=== PATIENT | female | born 1945 | race Caucasian/White ===

== ENCOUNTER 2021-02-06 10:19 | Inpatient (IN) ==
[2021-02-06] MEDS ORDERED: Sucralfate 1 GM TABLET PO PRN (14:27)
[2021-02-06] MEDS: *HR* LORazepam 1 MG TABLET PO PRN (20:34)
[2021-02-06] MEDS: amLODIPine 5 MG TABLET PO SCH (20:35)
[2021-02-06] MEDS: Cyclosporine [Restasis Multidose] 5.5 ML Drops OP SCH (20:37)
[2021-02-07] MEDS: *HR* Enoxaparin 40 MG/0.4 ML SYRINGE SQ SCH (05:43)
[2021-02-07] MEDS: amLODIPine 5 MG TABLET PO SCH ×2 (08:18→21:08)
[2021-02-07] MEDS: Aspirin Enteric Coated 81 MG Tablet PO SCH (08:18)
[2021-02-07] MEDS: *HR* LORazepam 1 MG TABLET PO PRN ×2 (08:19→21:09)
[2021-02-07] MEDS: Cyclosporine [Restasis Multidose] 5.5 ML Drops OP SCH ×2 (08:32→21:11)
[2021-02-08] MEDS: *HR* Enoxaparin 40 MG/0.4 ML SYRINGE SQ SCH (05:41)
[2021-02-08 05:56] LABS: Hematocrit 32.6 % (35.3-44.9); Hemoglobin 10.8 g/dL (11.5-15.4); Mean Corpuscular HGB Conc 33.1 g/dL (31.6-35.5); Mean Corpuscular Hemoglobin 28.6 pg (28.0-33.3); Mean Corpuscular Volume 86.5 fL (83.0-100.0); Mean Platelet Volume 9.3 fL (9.4-12.4); Platelet Count 222 K/mcL (140-400); Red Blood Count 3.77 M/mcL (3.82-4.97); Red Cell Distribution Width 12.7 % (11.5-14.5); White Blood Count 6.7 K/mcL (4.3-11.1)
[2021-02-08 06:19] LABS: BUN/Creatinine Ratio 18 (6-26); Blood Urea Nitrogen 10 mg/dL (8-23); Calcium 8.4 mg/dL (8.6-10.3); Carbon Dioxide 28 mEq/L (23-29); Chloride 98 mEq/L (98-107); Glucose 97 mg/dL (70-105); Osmolality,Calculated 273 (280-300); Sodium 132 mEq/L (136-145); eGFR For African Americans > 60 (> 60); eGFR For Non-African Americans > 60 (> 60)
[2021-02-08] MEDS: Aspirin Enteric Coated 81 MG Tablet PO SCH (10:38)
[2021-02-08] MEDS: amLODIPine 5 MG TABLET PO SCH ×2 (10:39→20:42)
[2021-02-08] MEDS: *HR* LORazepam 1 MG TABLET PO PRN ×2 (10:41→20:43)
[2021-02-08] MEDS: Cyclosporine [Restasis Multidose] 5.5 ML Drops OP SCH ×2 (10:41→20:24)
[2021-02-09] MEDS: *HR* Enoxaparin 40 MG/0.4 ML SYRINGE SQ SCH (05:19)
[2021-02-09] MEDS: Aspirin Enteric Coated 81 MG Tablet PO SCH (08:31)
[2021-02-09] MEDS: Cyclosporine [Restasis Multidose] 5.5 ML Drops OP SCH ×2 (08:32→21:00)
[2021-02-09] MEDS: amLODIPine 5 MG TABLET PO SCH ×2 (08:32→21:00)
[2021-02-09] MEDS: *HR* LORazepam 1 MG TABLET PO PRN ×2 (08:32→20:59)
[2021-02-10] MEDS: *HR* Enoxaparin 40 MG/0.4 ML SYRINGE SQ SCH (06:08)
[2021-02-10] MEDS: amLODIPine 5 MG TABLET PO SCH ×2 (07:50→20:26)
[2021-02-10] MEDS: Aspirin Enteric Coated 81 MG Tablet PO SCH (07:51)
[2021-02-10] MEDS: Cyclosporine [Restasis Multidose] 5.5 ML Drops OP SCH ×2 (07:51→19:14)
[2021-02-10] MEDS: *HR* LORazepam 1 MG TABLET PO PRN (18:20)
[2021-02-11] MEDS: *HR* Enoxaparin 40 MG/0.4 ML SYRINGE SQ SCH (05:10)
[2021-02-11 06:20] LABS: Basophils # 0.1 K/mcL (0.0-0.2); Basophils % 1.1 %; Eosinophils # 0.4 K/mcL (0.0-0.6); Eosinophils % 5.5 %; Hematocrit 36.6 % (35.3-44.9); Hemoglobin 12.2 g/dL (11.5-15.4); Immature Granulocytes % 0.3 % (0-4); Lymphocytes # 1.3 K/mcL (0.6-4.6); Lymphocytes % 19.9 %; Mean Corpuscular HGB Conc 33.3 g/dL (31.6-35.5); Mean Corpuscular Hemoglobin 28.9 pg (28.0-33.3); Mean Corpuscular Volume 86.7 fL (83.0-100.0); Mean Platelet Volume 9.3 fL (9.4-12.4); Monocytes # 0.7 K/mcL (0.0-1.3); Monocytes % 10.9 %; Neutrophils # 4.1 K/mcL (1.6-8.9); Platelet Count 225 K/mcL (140-400); Red Blood Count 4.22 M/mcL (3.82-4.97); Red Cell Distribution Width 12.8 % (11.5-14.5); Segmented Neutrophils % 62.3 %; White Blood Count 6.5 K/mcL (4.3-11.1)
[2021-02-11 06:43] LABS: BUN/Creatinine Ratio 17 (6-26); Blood Urea Nitrogen 9 mg/dL (8-23); Calcium 8.8 mg/dL (8.6-10.3); Carbon Dioxide 29 mEq/L (23-29); Chloride 96 mEq/L (98-107); Glucose 99 mg/dL (70-105); Osmolality,Calculated 271 (280-300); Potassium 3.7 mEq/L (3.5-5.1); Sodium 131 mEq/L (136-145); eGFR For African Americans > 60 (> 60); eGFR For Non-African Americans > 60 (> 60)
[2021-02-11] MEDS: Aspirin Enteric Coated 81 MG Tablet PO SCH (07:57)
[2021-02-11] MEDS: amLODIPine 5 MG TABLET PO SCH ×2 (07:57→19:33)
[2021-02-11] MEDS: Cyclosporine [Restasis Multidose] 5.5 ML Drops OP SCH (07:57)
[2021-02-11] MEDS: *HR* LORazepam 1 MG TABLET PO PRN ×2 (07:57→19:35)
[2021-02-12] MEDS: *HR* Enoxaparin 40 MG/0.4 ML SYRINGE SQ SCH (05:07)
[2021-02-12] MEDS: *HR* LORazepam 1 MG TABLET PO PRN ×2 (08:19→20:36)
[2021-02-12] MEDS: Aspirin Enteric Coated 81 MG Tablet PO SCH (08:19)
[2021-02-12] MEDS: amLODIPine 5 MG TABLET PO SCH ×2 (08:19→20:38)
[2021-02-13] MEDS: *HR* Enoxaparin 40 MG/0.4 ML SYRINGE SQ SCH (08:05)
[2021-02-13] MEDS: amLODIPine 5 MG TABLET PO SCH ×2 (08:05→20:32)
[2021-02-13] MEDS: Aspirin Enteric Coated 81 MG Tablet PO SCH (08:08)
[2021-02-13] MEDS ORDERED: MOM Conc 10 ML UD.LIQ PO PRN (15:41)
[2021-02-13] MEDS ORDERED: Bisacodyl 10 MG RECTAL SUPPOSITORY RC PRN (15:41)
[2021-02-13] MEDS: polyethylene glycoL 3350 17 GM POWD.PACK PO SCH (15:46)
[2021-02-13] MEDS: *HR* LORazepam 1 MG TABLET PO PRN (20:31)
[2021-02-13] MEDS: Sennosides 8.6 MG TABLET PO SCH (20:31)
[2021-02-14] MEDS: *HR* Enoxaparin 40 MG/0.4 ML SYRINGE SQ SCH (05:03)
[2021-02-14 07:18] VITALS: BP 152/74; PULSE 95; RESP 16; TEMP 97.9; O2SAT 96
[2021-02-14] MEDS ORDERED: Sucralfate 1 GM TABLET PO SCH (07:30)
[2021-02-14] MEDS: polyethylene glycoL 3350 17 GM POWD.PACK PO SCH (09:08)
[2021-02-14] MEDS: Aspirin Enteric Coated 81 MG Tablet PO SCH (09:08)
[2021-02-14] MEDS: amLODIPine 5 MG TABLET PO SCH (09:08)
[2021-02-14] MEDS: Sennosides 8.6 MG TABLET PO SCH (09:08)
[2021-02-14] MEDS: *HR* LORazepam 1 MG TABLET PO PRN (09:53)
== END 2021-02-14 10:55 | disposition home health service (06) | DRG 948 ==
LOC: INPGRE 14:02
PROVIDERS: ADMIT Family Medicine; ATTEND Family Medicine

== ENCOUNTER 2021-04-17 16:29 | Inpatient (IN) ==
[2021-04-17] MEDS: amLODIPine 5 MG TABLET PO SCH (21:11)
[2021-04-17] MEDS: *HR* LORazepam 1 MG TABLET PO PRN (21:14)
[2021-04-17] MEDS: Cyclosporine [Restasis Multidose] 5.5 ML Drops OP SCH (21:19)
[2021-04-18 06:04] LABS: Basophils # 0.1 K/mcL (0.0-0.2); Basophils % 0.9 %; Eosinophils # 0.3 K/mcL (0.0-0.6); Eosinophils % 4.9 %; Hematocrit 31.5 % (35.3-44.9); Hemoglobin 10.4 g/dL (11.5-15.4); Immature Granulocytes % 0.4 % (0-4); Lymphocytes # 1.3 K/mcL (0.6-4.6); Lymphocytes % 18.8 %; Mean Corpuscular Hemoglobin 28.7 pg (28.0-33.3); Mean Platelet Volume 9.6 fL (9.4-12.4); Monocytes # 1.1 K/mcL (0.0-1.3); Monocytes % 15.8 %; Neutrophils # 4.1 K/mcL (1.6-8.9); Platelet Count 227 K/mcL (140-400); Red Blood Count 3.62 M/mcL (3.82-4.97); Red Cell Distribution Width 14.2 % (11.5-14.5); Segmented Neutrophils % 59.2 %
[2021-04-18 06:25] LABS: BUN/Creatinine Ratio 24 (6-26); Blood Urea Nitrogen 13 mg/dL (8-23); Calcium 8.7 mg/dL (8.6-10.3); Carbon Dioxide 31 mEq/L (23-29); Chloride 95 mEq/L (98-107); Glucose 103 mg/dL (70-105); Osmolality,Calculated 264 (280-300); Potassium 3.9 mEq/L (3.5-5.1); Sodium 127 mEq/L (136-145); eGFR For African Americans > 60 (> 60); eGFR For Non-African Americans > 60 (> 60)
[2021-04-18] MEDS: Aspirin Enteric Coated 81 MG Tablet PO SCH (10:04)
[2021-04-18] MEDS: Loratadine 10 MG TABLET PO SCH (10:04)
[2021-04-18] MEDS: Sucralfate 1 GM TABLET PO PRN (10:04)
[2021-04-18] MEDS: *HR* Enoxaparin 40 MG/0.4 ML SYRINGE SQ SCH ×2 (10:04→10:21)
[2021-04-18] MEDS: amLODIPine 5 MG TABLET PO SCH ×2 (10:04→20:44)
[2021-04-18] MEDS: Cyanocobalamin (B-12) 1,000 MCG TABLET PO SCH (10:04)
[2021-04-18] MEDS: Cyclosporine [Restasis Multidose] 5.5 ML Drops OP SCH ×2 (10:05→21:00)
[2021-04-18] MEDS: valACYclovir 500 MG TABLET PO SCH ×2 (10:05→10:14)
[2021-04-18] MEDS: *HR* LORazepam 1 MG TABLET PO PRN ×2 (11:00→20:48)
[2021-04-19] MEDS: *HR* LORazepam 1 MG TABLET PO PRN ×2 (07:27→17:02)
[2021-04-19] MEDS: Aspirin Enteric Coated 81 MG Tablet PO SCH (07:28)
[2021-04-19] MEDS: Cyanocobalamin (B-12) 1,000 MCG TABLET PO SCH (07:28)
[2021-04-19] MEDS: valACYclovir 500 MG TABLET PO SCH (07:29)
[2021-04-19] MEDS: amLODIPine 5 MG TABLET PO SCH ×2 (07:29→19:50)
[2021-04-19] MEDS: Loratadine 10 MG TABLET PO SCH (07:29)
[2021-04-19] MEDS: Cyclosporine [Restasis Multidose] 5.5 ML Drops OP SCH ×2 (07:30→20:15)
[2021-04-19] MEDS: *HR* Enoxaparin 40 MG/0.4 ML SYRINGE SQ SCH ×2 (07:30→08:46)
[2021-04-19] MEDS: polyethylene glycoL 3350 17 GM POWD.PACK PO SCH ×2 (07:31→08:47)
[2021-04-20] MEDS: Cyanocobalamin (B-12) 1,000 MCG TABLET PO SCH (07:41)
[2021-04-20] MEDS: *HR* LORazepam 1 MG TABLET PO PRN (07:41)
[2021-04-20] MEDS: amLODIPine 5 MG TABLET PO SCH ×2 (07:41→21:07)
[2021-04-20] MEDS: Aspirin Enteric Coated 81 MG Tablet PO SCH (07:41)
[2021-04-20] MEDS: Loratadine 10 MG TABLET PO SCH (07:42)
[2021-04-20] MEDS: valACYclovir 500 MG TABLET PO SCH (07:42)
[2021-04-20] MEDS: Cyclosporine [Restasis Multidose] 5.5 ML Drops OP SCH ×2 (07:44→20:58)
[2021-04-20] MEDS: *HR* Enoxaparin 40 MG/0.4 ML SYRINGE SQ SCH (07:44)
[2021-04-20] MEDS: polyethylene glycoL 3350 17 GM POWD.PACK PO SCH (07:44)
[2021-04-20] MEDS: *HR* LORazepam 0.5 MG TABLET PO SCH ×2 (15:01→21:07)
[2021-04-20] MEDS ORDERED: Simethicone 80 MG TAB.CHEW PO PRN ×2 (20:24→20:28)
[2021-04-20] MEDS: Sucralfate 1 GM TABLET PO PRN (21:11)
[2021-04-21 04:32] LABS: Basophils # 0.1 K/mcL (0.0-0.2); Eosinophils # 0.5 K/mcL (0.0-0.6); Eosinophils % 6.9 %; Hematocrit 31.1 % (35.3-44.9); Hemoglobin 10.5 g/dL (11.5-15.4); Immature Granulocytes % 0.6 % (0-4); Lymphocytes # 1.4 K/mcL (0.6-4.6); Lymphocytes % 19.9 %; Mean Corpuscular HGB Conc 33.8 g/dL (31.6-35.5); Mean Corpuscular Hemoglobin 29.4 pg (28.0-33.3); Mean Corpuscular Volume 87.1 fL (83.0-100.0); Mean Platelet Volume 8.8 fL (9.4-12.4); Monocytes # 0.9 K/mcL (0.0-1.3); Monocytes % 13.1 %; Neutrophils # 4.1 K/mcL (1.6-8.9); Platelet Count 217 K/mcL (140-400); Red Blood Count 3.57 M/mcL (3.82-4.97); Red Cell Distribution Width 14.1 % (11.5-14.5); Segmented Neutrophils % 58.5 %
[2021-04-21 04:48] LABS: BUN/Creatinine Ratio 24 (6-26); Blood Urea Nitrogen 16 mg/dL (8-23); Calcium 8.4 mg/dL (8.6-10.3); Carbon Dioxide 29 mEq/L (23-29); Chloride 95 mEq/L (98-107); Glucose 128 mg/dL (70-105); Osmolality,Calculated 267 (280-300); Potassium 4.2 mEq/L (3.5-5.1); Sodium 127 mEq/L (136-145); eGFR For African Americans > 60 (> 60); eGFR For Non-African Americans > 60 (> 60)
[2021-04-21] MEDS: *HR* Enoxaparin 40 MG/0.4 ML SYRINGE SQ SCH (08:22)
[2021-04-21] MEDS: Aspirin Enteric Coated 81 MG Tablet PO SCH (08:24)
[2021-04-21] MEDS: valACYclovir 500 MG TABLET PO SCH (08:25)
[2021-04-21] MEDS: Cyanocobalamin (B-12) 1,000 MCG TABLET PO SCH (08:25)
[2021-04-21] MEDS: Loratadine 10 MG TABLET PO SCH (08:25)
[2021-04-21] MEDS: *HR* LORazepam 0.5 MG TABLET PO SCH ×3 (08:25→21:58)
[2021-04-21] MEDS: amLODIPine 5 MG TABLET PO SCH ×2 (08:25→21:58)
[2021-04-21] MEDS: Cyclosporine [Restasis Multidose] 5.5 ML Drops OP SCH ×2 (08:26→22:00)
[2021-04-21] MEDS: polyethylene glycoL 3350 17 GM POWD.PACK PO SCH (08:26)
[2021-04-21] MEDS: Sucralfate 1 GM TABLET PO PRN (13:48)
[2021-04-22 05:59] LABS: Chol/HDL Ratio 2.5 (0-4.9)
[2021-04-22] MEDS: amLODIPine 5 MG TABLET PO SCH ×2 (08:57→20:09)
[2021-04-22] MEDS: Aspirin Enteric Coated 81 MG Tablet PO SCH (08:57)
[2021-04-22] MEDS: valACYclovir 500 MG TABLET PO SCH (08:57)
[2021-04-22] MEDS: *HR* Enoxaparin 40 MG/0.4 ML SYRINGE SQ SCH (08:58)
[2021-04-22] MEDS: polyethylene glycoL 3350 17 GM POWD.PACK PO SCH (08:58)
[2021-04-22] MEDS: Cyclosporine [Restasis Multidose] 5.5 ML Drops OP SCH (08:58)
[2021-04-22] MEDS: *HR* LORazepam 0.5 MG TABLET PO SCH ×3 (08:58→20:08)
[2021-04-22] MEDS: Loratadine 10 MG TABLET PO SCH (08:58)
[2021-04-22] MEDS: Cyanocobalamin (B-12) 1,000 MCG TABLET PO SCH (08:58)
[2021-04-22] MEDS ORDERED: Bisacodyl 10 MG RECTAL SUPPOSITORY RC PRN (18:33)
[2021-04-22 18:43] LABS: Bilirubin,Urine Negative (Negative); Blood,Urine Large (Negative); Clarity,Urine Slightly Cloudy (Clear); Glucose,Urine (UA) Normal (Normal); Ketones,Urine Negative (Negative); Leukocyte Esterase,Urine Small (Negative); Nitrite,Urine Negative (Negative); Protein,Urine Negative (Neg-Trace); Specific Gravity,Urine 1.015 (1.010-1.025); Urobilinogen,Urine Normal (Normal)
[2021-04-22 18:49] LABS: Color,Urine LIGHT YELLOW (Yellow)
[2021-04-22] MEDS: Artificial Tears SOLN 15 ML BOTTLE OP SCH (20:07)
[2021-04-22] MEDS: Sucralfate 1 GM TABLET PO PRN (20:10)
[2021-04-22 20:40] LABS: Amorphous Sediment,Urine Few per hpf (None-Few); Bacteria,Urine Few per hpf (None-Few); Hyaline Casts,Urine Few per lpf (None Seen); Squamous Epithelial Cell,Urine Few per hpf (None-Few)
[2021-04-23] MEDS: Sucralfate 1 GM TABLET PO PRN (06:35)
[2021-04-23] MEDS: Artificial Tears SOLN 15 ML BOTTLE OP SCH ×2 (09:01→22:35)
[2021-04-23] MEDS: *HR* LORazepam 0.5 MG TABLET PO SCH ×3 (09:03→22:31)
[2021-04-23] MEDS: amLODIPine 5 MG TABLET PO SCH ×2 (09:03→22:31)
[2021-04-23] MEDS: Aspirin Enteric Coated 81 MG Tablet PO SCH (09:03)
[2021-04-23] MEDS: valACYclovir 500 MG TABLET PO SCH (09:03)
[2021-04-23] MEDS: Cyanocobalamin (B-12) 1,000 MCG TABLET PO SCH (09:03)
[2021-04-23] MEDS: Loratadine 10 MG TABLET PO SCH (09:03)
[2021-04-23] MEDS: *HR* Enoxaparin 40 MG/0.4 ML SYRINGE SQ SCH (09:04)
[2021-04-23] MEDS: polyethylene glycoL 3350 17 GM POWD.PACK PO SCH (09:18)
[2021-04-23 10:43] LABS: Hematocrit 36.2 % (35.3-44.9); Hemoglobin 12.4 g/dL (11.5-15.4); Mean Corpuscular HGB Conc 34.3 g/dL (31.6-35.5); Mean Corpuscular Hemoglobin 29.7 pg (28.0-33.3); Mean Corpuscular Volume 86.6 fL (83.0-100.0); Mean Platelet Volume 8.6 fL (9.4-12.4); Platelet Count 246 K/mcL (140-400); Red Blood Count 4.18 M/mcL (3.82-4.97); Red Cell Distribution Width 14.2 % (11.5-14.5); White Blood Count 9.2 K/mcL (4.3-11.1)
[2021-04-23 11:33] LABS: BUN/Creatinine Ratio 24 (6-26); Blood Urea Nitrogen 13 mg/dL (8-23); Calcium 8.9 mg/dL (8.6-10.3); Carbon Dioxide 30 mEq/L (23-29); Chloride 90 mEq/L (98-107); Glucose 105 mg/dL (70-105); Magnesium 1.9 mg/dL (1.6-2.6); Osmolality,Calculated 260 (280-300); Potassium 4.1 mEq/L (3.5-5.1); Sodium 125 mEq/L (136-145); eGFR For African Americans > 60 (> 60); eGFR For Non-African Americans > 60 (> 60)
[2021-04-24 06:22] LABS: Hematocrit 30.6 % (35.3-44.9); Hemoglobin 10.6 g/dL (11.5-15.4); Mean Corpuscular HGB Conc 34.6 g/dL (31.6-35.5); Mean Corpuscular Hemoglobin 29.9 pg (28.0-33.3); Mean Corpuscular Volume 86.2 fL (83.0-100.0); Mean Platelet Volume 9.3 fL (9.4-12.4); Platelet Count 224 K/mcL (140-400); Red Blood Count 3.55 M/mcL (3.82-4.97); Red Cell Distribution Width 14.2 % (11.5-14.5); White Blood Count 6.9 K/mcL (4.3-11.1)
[2021-04-24 06:42] LABS: BUN/Creatinine Ratio 24 (6-26); Blood Urea Nitrogen 12 mg/dL (8-23); Calcium 8.6 mg/dL (8.6-10.3); Carbon Dioxide 30 mEq/L (23-29); Chloride 94 mEq/L (98-107); Glucose 98 mg/dL (70-105); Magnesium 2.2 mg/dL (1.6-2.6); Osmolality,Calculated 266 (280-300); Potassium 3.9 mEq/L (3.5-5.1); Sodium 128 mEq/L (136-145); eGFR For African Americans > 60 (> 60); eGFR For Non-African Americans > 60 (> 60)
[2021-04-24] MEDS: Aspirin Enteric Coated 81 MG Tablet PO SCH (08:57)
[2021-04-24] MEDS: *HR* LORazepam 0.5 MG TABLET PO SCH ×3 (08:58→20:16)
[2021-04-24] MEDS: valACYclovir 500 MG TABLET PO SCH (08:58)
[2021-04-24] MEDS: amLODIPine 5 MG TABLET PO SCH ×2 (08:58→20:08)
[2021-04-24] MEDS: Loratadine 10 MG TABLET PO SCH (08:58)
[2021-04-24] MEDS: Cyanocobalamin (B-12) 1,000 MCG TABLET PO SCH (08:58)
[2021-04-24] MEDS: polyethylene glycoL 3350 17 GM POWD.PACK PO SCH (09:08)
[2021-04-24] MEDS: Artificial Tears SOLN 15 ML BOTTLE OP SCH ×2 (09:09→20:01)
[2021-04-24] MEDS: *HR* Enoxaparin 40 MG/0.4 ML SYRINGE SQ SCH (09:09)
[2021-04-24] MEDS: Sucralfate 1 GM TABLET PO PRN (18:19)
[2021-04-25] MEDS: Aspirin Enteric Coated 81 MG Tablet PO SCH (08:52)
[2021-04-25] MEDS: Cyanocobalamin (B-12) 1,000 MCG TABLET PO SCH (08:53)
[2021-04-25] MEDS: Loratadine 10 MG TABLET PO SCH (08:53)
[2021-04-25] MEDS: *HR* LORazepam 0.5 MG TABLET PO SCH ×3 (08:53→20:06)
[2021-04-25] MEDS: amLODIPine 5 MG TABLET PO SCH ×2 (08:53→20:04)
[2021-04-25] MEDS: valACYclovir 500 MG TABLET PO SCH (08:55)
[2021-04-25] MEDS: *HR* Enoxaparin 40 MG/0.4 ML SYRINGE SQ SCH (08:59)
[2021-04-25] MEDS: polyethylene glycoL 3350 17 GM POWD.PACK PO SCH (09:01)
[2021-04-25] MEDS: Artificial Tears SOLN 15 ML BOTTLE OP SCH ×2 (09:02→20:06)
[2021-04-26] MEDS: Sucralfate 1 GM TABLET PO PRN (06:24)
[2021-04-26 06:50] VITALS: BP 138/75; PULSE 94; RESP 17; TEMP 97.6; O2SAT 98
[2021-04-26] MEDS: Aspirin Enteric Coated 81 MG Tablet PO SCH (09:04)
[2021-04-26] MEDS: amLODIPine 5 MG TABLET PO SCH (09:04)
[2021-04-26] MEDS: valACYclovir 500 MG TABLET PO SCH (09:04)
[2021-04-26] MEDS: Loratadine 10 MG TABLET PO SCH (09:04)
[2021-04-26] MEDS: Cyanocobalamin (B-12) 1,000 MCG TABLET PO SCH (09:04)
[2021-04-26] MEDS: Artificial Tears SOLN 15 ML BOTTLE OP SCH (09:05)
[2021-04-26] MEDS: *HR* LORazepam 0.5 MG TABLET PO SCH (09:05)
[2021-04-26] MEDS: *HR* Enoxaparin 40 MG/0.4 ML SYRINGE SQ SCH (09:06)
[2021-04-26] MEDS: polyethylene glycoL 3350 17 GM POWD.PACK PO SCH (09:06)
== END 2021-04-26 11:05 | disposition home health service (06) | DRG 948 ==
LOC: INPGRE 18:28
PROVIDERS: ADMIT Family Medicine; ATTEND Family Medicine

== ENCOUNTER 2021-09-30 10:44 | Inpatient (IN) ==
[2021-09-30] MEDS ORDERED: valACYclovir 500 MG TABLET PO PRN (14:50)
[2021-09-30] MEDS ORDERED: Nystatin Ointment 15 GM TUBE TP PRN (14:50)
[2021-09-30] MEDS ORDERED: Budesonide Neb 0.5 MG/2 ML IH ONE (20:01)
[2021-09-30] MEDS: Budesonide Neb 0.5 MG/2 ML IH SCH (20:05)
[2021-09-30] MEDS: *HR* LORazepam 1 MG TABLET PO PRN (21:17)
[2021-09-30] MEDS: Cyclosporine [Restasis Multidose] 5.5 ML Drops OP SCH (21:18)
[2021-10-01] MEDS: *HR* Enoxaparin 40 MG/0.4 ML SYRINGE SQ SCH (06:48)
[2021-10-01 07:49] LABS: Hematocrit 34.5 % (35.3-44.9); Hemoglobin 11.5 g/dL (11.5-15.4); Mean Corpuscular HGB Conc 33.3 g/dL (31.6-35.5); Mean Corpuscular Volume 87.1 fL (83.0-100.0); Mean Platelet Volume 8.7 fL (9.4-12.4); Platelet Count 222 K/mcL (140-400); Red Blood Count 3.96 M/mcL (3.82-4.97); Red Cell Distribution Width 13.6 % (11.5-14.5); White Blood Count 4.9 K/mcL (4.3-11.1)
[2021-10-01 08:07] LABS: Alanine Aminotransferase 9 Units/L (7-52); Albumin 3.6 g/dL (3.5-5.7); Albumin/Globulin Ratio 2.1 (1.1-2.2); Alkaline Phosphatase 43 Units/L (34-104); Aspartate Amino Transferase 10 Units/L (13-39); BUN/Creatinine Ratio 24 (6-26); Bilirubin,Total 0.5 mg/dL (0.3-1.0); Blood Urea Nitrogen 13 mg/dL (8-23); Calcium 8.9 mg/dL (8.6-10.3); Carbon Dioxide 28 mEq/L (23-29); Chloride 97 mEq/L (98-107); Globulin 1.7 g/dL (2.4-3.5); Glucose 98 mg/dL (70-105); Magnesium 2.2 mg/dL (1.6-2.6); Osmolality,Calculated 270 (280-300); Sodium 130 mEq/L (136-145); Total Protein 5.3 g/dL (6.4-8.9); eGFR For African Americans > 60 (> 60); eGFR For Non-African Americans > 60 (> 60)
[2021-10-01] MEDS: amLODIPine 5 MG TABLET PO SCH (08:29)
[2021-10-01] MEDS: Loratadine 10 MG TABLET PO SCH (08:30)
[2021-10-01] MEDS: Aspirin Enteric Coated 81 MG Tablet PO SCH (08:30)
[2021-10-01] MEDS: Cyanocobalamin (B-12) 1,000 MCG TABLET PO SCH (08:30)
[2021-10-01] MEDS: Budesonide Neb 0.5 MG/2 ML IH SCH ×2 (10:10→20:46)
[2021-10-01] MEDS: Cyclosporine [Restasis Multidose] 5.5 ML Drops OP SCH ×2 (10:53→19:58)
[2021-10-01 11:42] LABS: Bilirubin,Urine Negative (Negative); Blood,Urine Moderate (Negative); Clarity,Urine Clear (Clear); Color,Urine Yellow (Yellow); Glucose,Urine (UA) Normal (Normal); Ketones,Urine Negative (Negative); Leukocyte Esterase,Urine Small (Negative); Nitrite,Urine Negative (Negative); PH,Urine 7.5 pH Units (5.0-8.0); Protein,Urine Negative (Neg-Trace); Urobilinogen,Urine Normal (Normal)
[2021-10-01 11:49] LABS: Bacteria,Urine Few per hpf (None-Few); WBC,Urine 0-3 per hpf (0-3)
[2021-10-01] MEDS: *HR* LORazepam 1 MG TABLET PO PRN ×2 (16:07→19:57)
[2021-10-02 05:31] LABS: Hematocrit 29.4 % (35.3-44.9); Mean Corpuscular Volume 85.2 fL (83.0-100.0); Mean Platelet Volume 9.1 fL (9.4-12.4); Platelet Count 203 K/mcL (140-400); Red Blood Count 3.45 M/mcL (3.82-4.97); Red Cell Distribution Width 13.5 % (11.5-14.5); White Blood Count 4.9 K/mcL (4.3-11.1)
[2021-10-02 05:48] LABS: Alanine Aminotransferase 7 Units/L (7-52); Albumin 3.3 g/dL (3.5-5.7); Albumin/Globulin Ratio 2.2 (1.1-2.2); Alkaline Phosphatase 39 Units/L (34-104); Aspartate Amino Transferase 10 Units/L (13-39); BUN/Creatinine Ratio 25 (6-26); Bilirubin,Total 0.4 mg/dL (0.3-1.0); Blood Urea Nitrogen 13 mg/dL (8-23); Calcium 8.6 mg/dL (8.6-10.3); Carbon Dioxide 25 mEq/L (23-29); Chloride 95 mEq/L (98-107); Globulin 1.5 g/dL (2.4-3.5); Glucose 96 mg/dL (70-105); Magnesium 2.1 mg/dL (1.6-2.6); Osmolality,Calculated 262 (280-300); Potassium 3.9 mEq/L (3.5-5.1); Sodium 126 mEq/L (136-145); Total Protein 4.8 g/dL (6.4-8.9); eGFR For African Americans > 60 (> 60); eGFR For Non-African Americans > 60 (> 60)
[2021-10-02] MEDS: *HR* Enoxaparin 40 MG/0.4 ML SYRINGE SQ SCH (06:20)
[2021-10-02] MEDS: Budesonide Neb 0.5 MG/2 ML IH SCH ×2 (07:17→21:12)
[2021-10-02] MEDS: *HR* LORazepam 1 MG TABLET PO PRN ×2 (07:26→21:09)
[2021-10-02] MEDS: Aspirin Enteric Coated 81 MG Tablet PO SCH (07:26)
[2021-10-02] MEDS: Cyanocobalamin (B-12) 1,000 MCG TABLET PO SCH (07:26)
[2021-10-02] MEDS: amLODIPine 5 MG TABLET PO SCH (07:26)
[2021-10-02] MEDS: Cyclosporine [Restasis Multidose] 5.5 ML Drops OP SCH ×2 (07:27→21:01)
[2021-10-02] MEDS: Loratadine 10 MG TABLET PO SCH (07:27)
[2021-10-03] MEDS: *HR* Enoxaparin 40 MG/0.4 ML SYRINGE SQ SCH (05:35)
[2021-10-03 06:38] LABS: Hematocrit 30.6 % (35.3-44.9); Hemoglobin 10.5 g/dL (11.5-15.4); Mean Corpuscular HGB Conc 34.3 g/dL (31.6-35.5); Mean Corpuscular Hemoglobin 29.3 pg (28.0-33.3); Mean Corpuscular Volume 85.5 fL (83.0-100.0); Mean Platelet Volume 8.8 fL (9.4-12.4); Platelet Count 189 K/mcL (140-400); Red Blood Count 3.58 M/mcL (3.82-4.97); Red Cell Distribution Width 13.5 % (11.5-14.5)
[2021-10-03 07:02] LABS: BUN/Creatinine Ratio 23 (6-26); Blood Urea Nitrogen 14 mg/dL (8-23); Calcium 8.7 mg/dL (8.6-10.3); Carbon Dioxide 26 mEq/L (23-29); Chloride 96 mEq/L (98-107); Glucose 90 mg/dL (70-105); Magnesium 2.2 mg/dL (1.6-2.6); Osmolality,Calculated 264 (280-300); Potassium 3.8 mEq/L (3.5-5.1); Sodium 127 mEq/L (136-145); eGFR For African Americans > 60 (> 60); eGFR For Non-African Americans > 60 (> 60)
[2021-10-03] MEDS: Budesonide Neb 0.5 MG/2 ML IH SCH (07:30)
[2021-10-03] MEDS: Cyclosporine [Restasis Multidose] 5.5 ML Drops OP SCH ×2 (08:34→21:06)
[2021-10-03] MEDS: Aspirin Enteric Coated 81 MG Tablet PO SCH (08:39)
[2021-10-03] MEDS: Cyanocobalamin (B-12) 1,000 MCG TABLET PO SCH (08:39)
[2021-10-03] MEDS: Loratadine 10 MG TABLET PO SCH (08:40)
[2021-10-03] MEDS: amLODIPine 5 MG TABLET PO SCH (08:40)
[2021-10-03] MEDS ORDERED: Budesonide Neb 0.5 MG/2 ML IH PRN (11:23)
[2021-10-03] MEDS: Sennosides 8.6 MG TABLET PO SCH (21:06)
[2021-10-04] MEDS: *HR* Enoxaparin 40 MG/0.4 ML SYRINGE SQ SCH (05:39)
[2021-10-04] MEDS: Aspirin Enteric Coated 81 MG Tablet PO SCH (09:00)
[2021-10-04] MEDS: Sennosides 8.6 MG TABLET PO SCH ×2 (09:00→20:00)
[2021-10-04] MEDS: amLODIPine 5 MG TABLET PO SCH (09:00)
[2021-10-04] MEDS: Loratadine 10 MG TABLET PO SCH (09:00)
[2021-10-04] MEDS: Cyanocobalamin (B-12) 1,000 MCG TABLET PO SCH (09:01)
[2021-10-04] MEDS: Cyclosporine [Restasis Multidose] 5.5 ML Drops OP SCH ×2 (09:01→20:01)
[2021-10-04] MEDS: *HR* LORazepam 1 MG TABLET PO PRN ×2 (12:15→20:01)
[2021-10-05] MEDS: *HR* Enoxaparin 40 MG/0.4 ML SYRINGE SQ SCH (05:47)
[2021-10-05] MEDS: amLODIPine 5 MG TABLET PO SCH (08:11)
[2021-10-05] MEDS: Loratadine 10 MG TABLET PO SCH (08:12)
[2021-10-05] MEDS: Aspirin Enteric Coated 81 MG Tablet PO SCH (08:12)
[2021-10-05] MEDS: Sennosides 8.6 MG TABLET PO SCH ×2 (08:13→21:49)
[2021-10-05] MEDS: Cyclosporine [Restasis Multidose] 5.5 ML Drops OP SCH ×2 (08:14→21:35)
[2021-10-05] MEDS: Cyanocobalamin (B-12) 1,000 MCG TABLET PO SCH (08:16)
[2021-10-05] MEDS: *HR* LORazepam 1 MG TABLET PO PRN ×2 (15:04→21:52)
[2021-10-06 05:14] LABS: Hematocrit 28.1 % (35.3-44.9); Hemoglobin 9.7 g/dL (11.5-15.4); Mean Corpuscular HGB Conc 34.5 g/dL (31.6-35.5); Mean Corpuscular Hemoglobin 29.5 pg (28.0-33.3); Mean Corpuscular Volume 85.4 fL (83.0-100.0); Mean Platelet Volume 9.3 fL (9.4-12.4); Platelet Count 188 K/mcL (140-400); Red Blood Count 3.29 M/mcL (3.82-4.97); Red Cell Distribution Width 13.7 % (11.5-14.5); White Blood Count 6.3 K/mcL (4.3-11.1)
[2021-10-06 05:31] LABS: Alanine Aminotransferase 11 Units/L (7-52); Albumin 3.2 g/dL (3.5-5.7); Albumin/Globulin Ratio 1.7 (1.1-2.2); Alkaline Phosphatase 35 Units/L (34-104); Aspartate Amino Transferase 13 Units/L (13-39); BUN/Creatinine Ratio 21 (6-26); Bilirubin,Total 0.4 mg/dL (0.3-1.0); Blood Urea Nitrogen 13 mg/dL (8-23); Calcium 8.6 mg/dL (8.6-10.3); Carbon Dioxide 27 mEq/L (23-29); Chloride 97 mEq/L (98-107); Globulin 1.9 g/dL (2.4-3.5); Glucose 92 mg/dL (70-105); Magnesium 1.9 mg/dL (1.6-2.6); Osmolality,Calculated 266 (280-300); Potassium 4.3 mEq/L (3.5-5.1); Sodium 128 mEq/L (136-145); Total Protein 5.1 g/dL (6.4-8.9); eGFR For African Americans > 60 (> 60); eGFR For Non-African Americans > 60 (> 60)
[2021-10-06] MEDS: *HR* Enoxaparin 40 MG/0.4 ML SYRINGE SQ SCH (05:58)
[2021-10-06] MEDS: *HR* LORazepam 1 MG TABLET PO PRN (09:29)
[2021-10-06] MEDS: Loratadine 10 MG TABLET PO SCH (09:29)
[2021-10-06] MEDS: Aspirin Enteric Coated 81 MG Tablet PO SCH (09:30)
[2021-10-06] MEDS: amLODIPine 5 MG TABLET PO SCH (09:30)
[2021-10-06] MEDS: Sennosides 8.6 MG TABLET PO SCH ×2 (09:31→21:54)
[2021-10-06] MEDS: Cyclosporine [Restasis Multidose] 5.5 ML Drops OP SCH ×2 (09:31→21:54)
[2021-10-06] MEDS: Cyanocobalamin (B-12) 1,000 MCG TABLET PO SCH (09:31)
[2021-10-06] MEDS: *HR* LORazepam 0.5 MG TABLET PO SCH ×3 (12:46→21:53)
[2021-10-07] MEDS: *HR* Enoxaparin 40 MG/0.4 ML SYRINGE SQ SCH (06:36)
[2021-10-07] MEDS: Cyanocobalamin (B-12) 1,000 MCG TABLET PO SCH (08:51)
[2021-10-07] MEDS: Cyclosporine [Restasis Multidose] 5.5 ML Drops OP SCH ×2 (08:51→20:54)
[2021-10-07] MEDS: Loratadine 10 MG TABLET PO SCH (08:51)
[2021-10-07] MEDS: Aspirin Enteric Coated 81 MG Tablet PO SCH (08:51)
[2021-10-07] MEDS: amLODIPine 5 MG TABLET PO SCH (08:52)
[2021-10-07] MEDS: *HR* LORazepam 0.5 MG TABLET PO SCH ×4 (08:52→20:43)
[2021-10-07] MEDS: Sennosides 8.6 MG TABLET PO SCH ×2 (08:52→20:46)
[2021-10-08] MEDS: *HR* Enoxaparin 40 MG/0.4 ML SYRINGE SQ SCH (06:24)
[2021-10-08] MEDS: Cyanocobalamin (B-12) 1,000 MCG TABLET PO SCH (07:54)
[2021-10-08] MEDS: Sennosides 8.6 MG TABLET PO SCH ×2 (07:54→21:19)
[2021-10-08] MEDS: amLODIPine 5 MG TABLET PO SCH (07:54)
[2021-10-08] MEDS: Loratadine 10 MG TABLET PO SCH (07:54)
[2021-10-08] MEDS: *HR* LORazepam 0.5 MG TABLET PO SCH ×4 (07:54→21:19)
[2021-10-08] MEDS: Cyclosporine [Restasis Multidose] 5.5 ML Drops OP SCH ×2 (07:54→21:27)
[2021-10-08] MEDS: Aspirin Enteric Coated 81 MG Tablet PO SCH (07:54)
[2021-10-08 19:35] VITALS: RESP 16
[2021-10-09] MEDS: *HR* Enoxaparin 40 MG/0.4 ML SYRINGE SQ SCH (05:53)
[2021-10-09 07:05] VITALS: BP 139/69; PULSE 77; TEMP 98.2; O2SAT 99
[2021-10-09] MEDS: Sennosides 8.6 MG TABLET PO SCH (09:24)
[2021-10-09] MEDS: Aspirin Enteric Coated 81 MG Tablet PO SCH (09:24)
[2021-10-09] MEDS: Loratadine 10 MG TABLET PO SCH (09:24)
[2021-10-09] MEDS: Cyanocobalamin (B-12) 1,000 MCG TABLET PO SCH (09:25)
[2021-10-09] MEDS: Cyclosporine [Restasis Multidose] 5.5 ML Drops OP SCH (09:25)
[2021-10-09] MEDS: amLODIPine 5 MG TABLET PO SCH (09:25)
[2021-10-09] MEDS: *HR* LORazepam 0.5 MG TABLET PO SCH ×2 (09:25→12:18)
== END 2021-10-09 17:45 | DRG 65 ==
LOC: SUATTDRO 17:15 → INPGRE 17:15
PROVIDERS: ADMIT Internal Medicine; ATTEND Family Medicine